=== PATIENT | female | born 1985 | race Hispanic/Latino ===

== ENCOUNTER 2022-11-18 20:23 | Emergency (ER) | payer MEDICAID, OTHER | END 2022-11-18 21:30 | disposition home or self-care (01) | LOC: MADERS 20:23 | DX: J06.9 Acute upper respiratory infection, unspecified (principal) | CPT/HCPCS: 71045; 87081; 87430 ==

== ENCOUNTER 2024-05-13 21:16 | Emergency (ER) | payer MEDICAID, SELFPAY ==
[2024-05-13] MEDS ORDERED: Silver Sulfadiazine 50 GM TUBE ONE (21:25)
[2024-05-13] MEDS ORDERED: Ibuprofen 600 MG TAB ONE (21:25)
[2024-05-13] MEDS ORDERED: Doxycycline 100 MG CAP ONE (21:46)
== END 2024-05-13 22:24 | disposition home or self-care (01) ==
LOC: MADERS 21:16
DX: T24.231A Burn of second degree of right lower leg, initial encounter (principal); T24.232A Burn of second degree of left lower leg, initial encounter; T20.20XA Burn of second degree of head, face, and neck, unspecified site, initial encounter; T20.27XA Burn of second degree of neck, initial encounter; F17.290 Nicotine dependence, other tobacco product, uncomplicated; X08.8XXA Exposure to other specified smoke, fire and flames, initial encounter
CPT/HCPCS: 99283

== ENCOUNTER 2024-08-05 13:45 | Emergency (ER) | payer SELFPAY | END 2024-08-05 15:11 | disposition home or self-care (01) | LOC: MADERS 13:45 | DX: J06.9 Acute upper respiratory infection, unspecified (principal) | CPT/HCPCS: 87081; 87430; 99284 ==